=== PATIENT | female | born 1985 | race Caucasian/White ===

== ENCOUNTER 2016-11-21 13:27 | Inpatient (IN) | payer BC ==
[~2016-11-21] VITALS: Ht 172.7 cm; Wt 116.8 kg
[2016-12-19] MEDS ORDERED: INSULIN N (N100 U/ML SQ (14:08)
[2016-12-22] VITALS (20 sets, daily range): BP systolic 84–141; BP diastolic 45–92; PULSE 62–105; TEMP 97.7–98.7
[2016-12-22 06:41] LABS: BASO % 0.3 % (0.0-2.0); EOS % 0.6 % (0-4.0); GRAN # 4.7 (1.4-6.5); HEMOGLOBIN 12.2 g/dl (12.5-16.0); LYMPH # 1.5 (1.2-3.4); LYMPH % 22.1 % (20.0-51.0); MEAN CELL VOLUME 79 fl (80.0-100.0); MEAN CORPUSCULAR HEMOGLOBIN 26 pg (27.0-31.0); MEAN CORPUSCULAR HGB CONC 33 g/dl (33.0-37.0); MEAN PLATELET VOLUME 10.3 fl (7.4-10.4); MONO # 0.5 (0.1-0.6); MONO % 7.4 % (1.7-9.3); PLATELET COUNT 176 K/mm3 (130-400); RED BLOOD COUNT 4.66 M/mm3 (4.10-5.30); REDCELL DISTRIBUTION WIDTH-CV 14.8 % (11.5-14.5); WHITE BLOOD COUNT 6.8 K/mm3 (4.8-10.8)
[2016-12-22] MEDS ORDERED: PRENATAL PO (07:11)
[2016-12-23 02:10] VITALS: BP 120/48; PULSE 75; TEMP 97.9
[2016-12-23 07:15] VITALS: BP 109/66; PULSE 72; TEMP 97.8
[2016-12-23 07:50] LABS: HEMATOCRIT 33.2 % (37.0-47.0); HEMOGLOBIN 10.8 g/dl (12.5-16.0)
[2016-12-23] MEDS ORDERED: IBU600 MG PO (08:03)
[2016-12-23] MEDS ORDERED: PERCOCET 325 MG1 TA2 PO (08:03)
[2016-12-23 15:59] VITALS: BP 127/64; PULSE 74; TEMP 97.9
[2016-12-23 20:00] VITALS: BP 122/77; PULSE 78; TEMP 98.3
[2016-12-23 23:00] VITALS: BP 125/74; PULSE 70; TEMP 98.1
[2016-12-24 06:45] VITALS: BP 138/90; PULSE 74; TEMP 98
== END 2016-12-24 10:00 | disposition home or self-care (01) | DRG 766 ==
LOC: LDRO → OB 12-22 05:25 → LDR 12-22 10:39 → OB 12-24 10:00 → EDSTATUS 12-29 10:22 → LDRO 12-29 13:20
PROVIDERS: Obstetrics & Gynecology
PROC: 10D00Z1 Extraction of Products of Conception, Low, Open Approach (ICD-10-PCS; principal; 2016-12-22)
PROC: 0UB70ZZ Excision of Bilateral Fallopian Tubes, Open Approach (ICD-10-PCS; 2016-12-22)
DX: O34.211 Maternal care for low transverse scar from previous cesarean delivery (principal); N85.8 Other specified noninflammatory disorders of uterus; O99.824 Streptococcus B carrier state complicating childbirth; O24.424 Gestational diabetes mellitus in childbirth, insulin controlled; Z3A.39 39 weeks gestation of pregnancy; Z37.0 Single live birth; Z40.09 Encounter for prophylactic removal of other organ
CPT/HCPCS: A9284; J0690; J1885; J2270; J2370; J2405; J2590; J7120

== ENCOUNTER 2016-12-19 13:44 | Outpatient (CLI) | payer BC ==
[~2016-12-19] VITALS: Ht 172.7 cm; Wt 116.8 kg
[2016-12-19 13:58] VITALS: BP 129/86; PULSE 112; TEMP 98.7
[2016-12-19 14:00] VITALS: BP 129/86; PULSE 112; TEMP 98.7
[2016-12-19] MEDS ORDERED: INSULIN N (N100 U/ML SQ (14:08)
[2016-12-19 15:13] VITALS: BP 124/68; PULSE 96
== END 2016-12-19 15:10 | disposition home or self-care (01) ==
LOC: LDRO 13:44
DX: O47.1 False labor at or after 37 completed weeks of gestation (principal); Z3A.39 39 weeks gestation of pregnancy